=== PATIENT | male | born 1980 | race African-American/Black ===

== ENCOUNTER 2021-06-16 13:44 | Emergency (ER) | payer BC, SELFPAY ==
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
[2021-06-16 13:59] VITALS: BP 147/95; PULSE 91; RESP 16; TEMP 36.8; O2SAT 100
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
[2021-06-16 14:46] VITALS: BP 147/95; PULSE 91; RESP 16; TEMP 36.8; O2SAT 100
== END 2021-06-16 14:50 | disposition home or self-care (01) ==
PROVIDERS: Emergency Provider Registered Nurse
DX: S60.221A Contusion of right hand, initial encounter (principal); W50.0XXA Accidental hit or strike by another person, initial encounter; Y93.67 Activity, basketball
CPT/HCPCS: 73130; 99203; G0463